=== PATIENT | male | born 1945 | race Caucasian/White ===

== ENCOUNTER 2017-09-16 14:40 | Emergency (ER) | payer OTHER ==
[~2017-09-16] VITALS: Ht 182.9 cm; Wt 111.0 kg
[~2017-09-16 14:40] MED LIST: ACET-1256 PO; ALL100 PO; ASPI81TA28 PO; BUPR-79 PO; CLR10 PO; DOCU-94 PO; IBUP-1427 PO; LACT10SO3 PO; LISI-725 PO; METO50TA16 PO; NORT75CA2 PO; TAMS0.4C38 PO
[2017-09-16 14:48] VITALS: TEMP 36.7; Ht 182.9 cm; Wt 111.0 kg
[2017-09-16] MEDS ORDERED: SODIUM CHLORIDE 0.9% 1000ML 1,000 ML IV STA (15:10)
[2017-09-16 15:22] VITALS: O2SAT 95
[2017-09-16 15:41] LABS: BASO % 0.9 %; BASO ABS # 0.04 K/uL (0-0.2); EOS % 7.3 %; EOS ABS # 0.32 K/uL (0-0.5); HEMATOCRIT 37.8 % (42-52); HEMOGLOBIN 12.6 g/dL (14.0-18.0); IG# 0.01 K/uL (0.00-0.02); LYMPH % 21.3 %; LYMPH ABS # 0.93 K/uL (1.2-3.4); MEAN CELL VOLUME 97.2 fL (80-100); MEAN CORPUSCULAR HEMOGLOBIN 32.4 pg (25-34); MEAN CORPUSCULAR HGB CONC 33.3 g/dl (32-36); MEAN PLATELET VOLUME 9.6 fL (7.4-10.4); MONO ABS # 0.61 K/uL (0.11-0.59); NEUT % 56.3 %; NEUT ABS # 2.45 K/uL (1.4-6.5); PLATELET COUNT 202 K/uL (130-400); RED CELL DISTRIBUTION WIDTH SD 46.1 fL (36.4-46.3); WHITE BLOOD COUNT 4.36 K/uL (4.8-10.8)
[2017-09-16 15:53] LABS: PTT PATIENT 28.7 SECONDS (21.0-31.0)
[2017-09-16 15:58] LABS: ALBUMIN 3.1 gm/dl (3.4-5.0); ALKALINE PHOSPHATASE 80 U/L (45-117); ALT/SGPT 16 U/L (12-78); AST/SGOT 12 U/L (15-37); BLOOD UREA NITROGEN 26 mg/dl (7-18); CARBON DIOXIDE 27 mmol/L (21-32); CREATININE 0.91 mg/dl (0.60-1.40); GLUCOSE 90 mg/dl (70-99); LIPASE 86 U/L (73-393); POTASSIUM 3.9 mmol/L (3.5-5.1); SODIUM 142 mmol/L (136-145); TOTAL PROTEIN 6.4 gm/dl (6.4-8.2)
[2017-09-16] MEDS ORDERED: ACETAMINOPHEN 500 MG TAB PO STA (16:30)
[2017-09-16] MEDS ORDERED: PANTOprazole SOD 40 MG TAB PO STA (16:30)
[2017-09-16] MEDS ORDERED: PRT/20 PO (16:33)
[2017-09-16 16:50] VITALS: BP 165/88; PULSE 66; O2SAT 96
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
== END 2017-09-16 16:57 | disposition home or self-care (01) ==
LOC: C.EDB 14:41 → C.EDC 16:57
DX: K62.5 Hemorrhage of anus and rectum (principal); G89.29 Other chronic pain; M54.9 Dorsalgia, unspecified; Z85.46 Personal history of malignant neoplasm of prostate; Z79.82 Long term (current) use of aspirin; Z79.899 Other long term (current) drug therapy

== ENCOUNTER → 2017-09-21 | Outpatient (CLI) | payer OTHER ==
[~2017-09-21] MED LIST changes: +GADAVIST IV PRN; +PRT/20 PO
--- NOTE | 2017-09-21 10:51 | DIAGNOSTIC IMAGING REPORT ---
MRI LUMBAR SPINE COMBINATION CLINICAL HISTORY: Low back pain. Prostate carcinoma. ABNORMAL BONE SCAN TECHNIQUE: Sagittal and axial T1, T2 and STIR images were obtained. Images were acquired before and after the administration of 10 cc of intravenous Gadavist. COMPARISON STUDY: Otherwise bone scan dated 08/21/2017 OBSERVATIONS: The vertebral bodies and posterior elements appear intact. There is no abnormal bony signal present to suggest a marrow replacement process. There is marrow edema at the L1-2 level. This is felt to the discogenic basis. This explains the abnormal activity on the prior bone scan. L1-2: There is a moderate central disc protrusion with secondary moderate spinal stenosis. There is mild left-sided foraminal narrowing and moderate to severe right-sided foraminal narrowing. L2-3: There is a disc bulge and central disc protrusion. There is moderate spinal stenosis. There is no significant foraminal narrowing. L3-4: There is a mild circumferential disc bulge. There is facet joint arthropathy. There is mild spinal stenosis. There is no significant foraminal narrowing. L4-5: There is a circumferential disc bulge. There is moderate to severe spinal stenosis. There is bilateral foraminal narrowing. L5-S1: There is a minor circumferential disc bulge. There is facet joint arthropathy. There is no significant spinal stenosis. There is mild bilateral foraminal narrowing. There is clumping of the nerve roots in the cauda equina raising the possibility of arachnoiditis. Postcontrast images reveal no pathologically enhancing masses. There is mild enhancement surrounding the L1 disc protrusion consistent with enhancing inflammatory/granulation tissue. The conus medullaris and cauda equina appear normal. IMPRESSION: 1. No evidence of metastatic disease. The focus of increased activity at the L2 level described on the recent bone scan is secondary to L1-2 disc disease. 2. Advanced multilevel spondylitic changes. Multilevel disc bulges and disc protrusion at the L1-2 and L2-3 levels. Moderate spinal stenosis the L1-2, L2-3 levels. Moderate to severe spinal stenosis at the L4-5 level. Mild spinal stenosis at the L3-4 level. Multilevel foraminal narrowing including moderate to severe right-sided narrowing at the L1-2 level. Electronically signed by: Anand Gatica M.D. 09/21/2017 10:49 AM Dictated Date/Time: 09/21/2017 10:42 AM
== END | disposition home or self-care (01) ==
LOC: C.MRI 09:00
PROVIDERS: ATTEND Family Medicine
DX: C61 Malignant neoplasm of prostate (principal)